=== PATIENT | male | born 1940 ===

== ENCOUNTER 2016-08-19 13:07 | Outpatient (CLI) | payer MEDICARE ==
[2016-08-19 13:19] LABS: Hematocrit 26.1 % (35.5-45.6); Hemoglobin 8.7 gm/dl (11.8-15.2); Mean Corpuscular HGB Conc 33 % (32-34); Mean Corpuscular Hemoglobin 32 pg (28-32); Mean Corpuscular Volume 95 fl (84-94); Platelet Count 226 K/mm3 (140-440); Red Blood Count 2.74 M/mm3 (3.65-5.03); Red Cell Distribution Width 16.7 % (13.2-15.2); White Blood Count 11.5 K/mm3 (4.5-11.0)
[2016-08-19 13:35] LABS: Albumin 1.8 g/dL (3.9-5); Albumin/Globulin Ratio 0.5 %; BUN/Creatinine Ratio 13.52; Bilirubin,Direct 5.9 mg/dL (0-0.2); Bilirubin,Indirect 1.9 mg/dL; Bilirubin,Total 7.8 mg/dL (0.1-1.2); Calcium 7.7 mg/dL (8.4-10.2); Chloride 99.6 mmol/L (98-107); Total Protein 5.5 g/dL (6.3-8.2)
== END 2016-08-19 13:08 | disposition home or self-care (01) ==
LOC: LABHHL 13:07
DX: I10 Essential (primary) hypertension (principal); D64.9 Anemia, unspecified; R16.0 Hepatomegaly, not elsewhere classified; E72.20 Disorder of urea cycle metabolism, unspecified; E80.6 Other disorders of bilirubin metabolism; Z79.899 Other long term (current) drug therapy
CPT/HCPCS: 36415; 80048; 80074; 82607; 82728; 83550; 85027